=== PATIENT | male | born 1935 | race African-American/Black ===

== ENCOUNTER 2021-01-22 12:30 | Inpatient (IN) | payer OTHER ==
[~2021-01-22] VITALS: Ht 177.8 cm; Wt 62.7 kg
[2021-01-22 14:57] LABS: Albumin 2.8 g/dL (3.4-5.0); Calcium 8.1 mg/dL (8.5-10.1); Potassium 3.9 mmol/L (3.5-5.1)
[2021-01-22 15:00] LABS: BUN/Creatinine Ratio 18.5; Bilirubin, Total 0.8 mg/dL (0.2-1.0); Total Protein 6.3 g/dL (6.4-8.2)
[2021-01-22] MEDS ORDERED: NITROGLYCERIN 0.4 MG SL TAB SL PRN ×2 (16:45→19:15)
[2021-01-22] MEDS ORDERED: MORPHINE SULFATE INJECTION 2 MG/ML SYRG IV PRN ×3 (16:45→19:15)
[2021-01-22] MEDS ORDERED: ENOXAPARIN SOD 80 MG/0.8ML SYRINGE SC ONE (16:47)
[2021-01-22] MEDS ORDERED: NIFEdipine ER 30 MG TAB PO ONE (18:15)
[2021-01-22] MEDS ORDERED: hydrALAZINE HCL 20 MG/ML VL IV ONE (18:15)
[2021-01-22] MEDS ORDERED: hydrALAZINE HCL 20 MG/ML VL IV PRN (18:15)
[2021-01-22] MEDS ORDERED: ALBUTEROL SULF 2.5 MG/0.5ML(0.5%) NEB SOLN NEB ONE (19:15)
[2021-01-22] MEDS ORDERED: methylPREDNISolone SOD SUCC 125 MG/2 ML VL IV ONE (19:15)
[2021-01-22] MEDS ORDERED: IPRATROPIUM BROM 0.5 MG/2.5ML INH SOL NEB ONE (19:15)
[2021-01-22] MEDS ORDERED: ALUM & MAG HYDROX-SIMETH LIQ(MAALOX) 30 ML PO PRN (19:15)
[2021-01-22] MEDS ORDERED: HYDROcodone-ACET 5/325MG TAB PO PRN (19:15)
[2021-01-22] MEDS ORDERED: ACETAMINOPHEN 325 MG TAB PO PRN (19:15)
[2021-01-22] MEDS ORDERED: LOSARTAN POTASSIUM 50 MG TAB PO ONE (19:15)
[2021-01-22] MEDS ORDERED: ASPirin 81 mg TAB PO ONE (19:15)
[2021-01-22] MEDS ORDERED: ONDANSETRON HCL 4 MG/2 ML VIAL IV PRN (19:15)
[2021-01-22] MEDS ORDERED: FAMOTIDINE (10MG/ML) 2ML VL IV ONE (19:15)
[2021-01-22] MEDS ORDERED: ISOSORBIDE MONONITRATE ER 60 MG TAB PO ONE (19:15)
[2021-01-22] MEDS ORDERED: AZITHROMYCIN 500MG/ 250ML 250 ML IV ONE (19:15)
[2021-01-22] MEDS ORDERED: cefTRIAXone 1GM/50ML D5W 50 ML IV ONE (19:15)
[2021-01-22] MEDS ORDERED: DOCUSATE SOD 100 MG CAP PO PRN (19:15)
[2021-01-22] MEDS ORDERED: LORazepam 0.5 MG TAB PO PRN (19:15)
[2021-01-22 19:53] VITALS: BP 146/66
[2021-01-22] MEDS: FAMOTIDINE (10MG/ML) 2ML VL IV SCH (21:31)
[2021-01-22] MEDS: POTASSIUM CHL 20 Meq TABLET PO SCH (21:32)
[2021-01-22] MEDS: ATORVASTATIN 20 MG TAB PO SCH (21:33)
[2021-01-22 21:41] VITALS: BP 146/66
[2021-01-22] MEDS ORDERED: ALBUTEROL SULF 2.5 MG/0.5ML(0.5%) NEB SOLN NEB SCH (22:00)
[2021-01-22] MEDS ORDERED: IPRATROPIUM BROM 0.5 MG/2.5ML INH SOL NEB SCH (22:00)
[2021-01-22] MEDS ORDERED: LEVE500T32 PO (22:50)
[2021-01-22] MEDS ORDERED: PRE1T PO (22:50)
[2021-01-22] MEDS ORDERED: METH2.5T PO (22:50)
[2021-01-22] MEDS ORDERED: ATOR-47 PO (22:50)
[2021-01-22] MEDS ORDERED: TICA90TA PO (22:50)
[2021-01-22] MEDS ORDERED: LOSA25TA38 PO (22:50)
[2021-01-22] MEDS ORDERED: FOLI1TAB6 PO (22:50)
[2021-01-22] MEDS ORDERED: MID10T PO (22:50)
[2021-01-22] MEDS ORDERED: FINA5TAB4 PO (22:50)
[2021-01-22] MEDS ORDERED: LEVO0.5S6 OP (22:50)
[2021-01-22] MEDS ORDERED: ASPI-543 PO (22:50)
[2021-01-22] MEDS ORDERED: NITR1CAP23 PO (22:50)
[2021-01-23 01:00] LABS: Basophils # (auto) 0 10 ^3/uL (0-0.2); Basophils % (auto) 0.5 % (0.0-2.0); Eosinophils # (auto) 0.1 10 ^3/uL (0-0.8); Eosinophils % (auto) 2.7 % (0.0-7.0); Hematocrit 35.3 % (41.0-53.0); Lymphocytes # (auto) 0.7 10 ^3/uL (0.4-5.4); Lymphocytes % (auto) 17.8 % (10.0-50.0); Mean Corpuscular Hemoglobin 32.3 pg (28.0-32.0); Mean Corpuscular Hgb Conc. 34.2 g/dL (32.0-36.0); Mean Corpuscular Volume 94.6 fL (80.0-100.0); Monocytes # (auto) 0.3 10 ^3/uL (0-1.3); Monocytes % (auto) 6.2 % (0.0-12.0); Neutrophils # (auto) 3.1 10 ^3/uL (1.6-8.6); Neutrophils % (auto) 72.8 % (37.0-80.0); Nucleated Red Blood Cells % 0.1 %; Red Blood Cells 3.73 10^6/uL (4.5-5.90); Red Cell Distribution Width 16.1 % (11.8-14.3); White Blood Cell 4.2 10^3/uL (4.4-10.8)
[2021-01-23 04:56] VITALS: BP 90/59
[2021-01-23] MEDS ORDERED: FUROSEMIDE 20 MG/2 ML VIAL IV SCH (06:00)
[2021-01-23] MEDS ORDERED: methylPREDNISolone SOD SUCC 40 MG/ML VL IV SCH (06:00)
[2021-01-23] MEDS ORDERED: ENOXAPARIN SOD 100 MG/1 ML SYRINGE SC SCH (06:00)
[2021-01-23 07:10] LABS: INR 1.19 (0.9-1.15); Partial Thromboplastin Time 28.8 sec (23.6-33.0)
[2021-01-23 07:12] LABS: Basophils # (auto) 0 10 ^3/uL (0-0.2); Basophils % (auto) 0.4 % (0.0-2.0); Eosinophils # (auto) 0.1 10 ^3/uL (0-0.8); Eosinophils % (auto) 1.3 % (0.0-7.0); Hematocrit 31.5 % (41.0-53.0); Hemoglobin 10.8 g/dL (13.5-17.5); Lymphocytes # (auto) 0.4 10 ^3/uL (0.4-5.4); Lymphocytes % (auto) 10.1 % (10.0-50.0); Mean Corpuscular Hgb Conc. 34.4 g/dL (32.0-36.0); Monocytes # (auto) 0.2 10 ^3/uL (0-1.3); Monocytes % (auto) 5.9 % (0.0-12.0); Neutrophils # (auto) 3.5 10 ^3/uL (1.6-8.6); Neutrophils % (auto) 82.3 % (37.0-80.0); Nucleated Red Blood Cells % 0.1 %; Red Blood Cells 3.39 10^6/uL (4.5-5.90); Red Cell Distribution Width 15.9 % (11.8-14.3); White Blood Cell 4.2 10^3/uL (4.4-10.8)
[2021-01-23 07:16] LABS: Albumin 2.6 g/dL (3.4-5.0); Calcium 7.8 mg/dL (8.5-10.1); Magnesium 2.9 mg/dL (1.6-2.6); Potassium 4.1 mmol/L (3.5-5.1)
[2021-01-23 07:23] LABS: Bilirubin, Total 0.7 mg/dL (0.2-1.0); Phosphorus 2.2 mg/dL (2.5-4.90); Total Protein 5.6 g/dL (6.4-8.2); Uric Acid 7.4 mg/dL (3.5-7.2)
[2021-01-23 09:00] VITALS: BP 94/45
[2021-01-23] MEDS ORDERED: cefTRIAXone 1GM/50ML D5W 50 ML IV SCH (09:00)
[2021-01-23] MEDS: ISOSORBIDE MONONITRATE ER 60 MG TAB PO SCH (10:00)
[2021-01-23] MEDS ORDERED: LOSARTAN POTASSIUM 50 MG TAB PO SCH (10:00)
[2021-01-23] MEDS ORDERED: AZITHROMYCIN 500MG/ 250ML 250 ML IV SCH (10:00)
[2021-01-23] MEDS: POTASSIUM CHL 20 Meq TABLET PO SCH (10:11)
[2021-01-23] MEDS: ASPirin 81 mg TAB PO SCH (10:11)
[2021-01-23] MEDS: FAMOTIDINE (10MG/ML) 2ML VL IV SCH (10:11)
[2021-01-23 12:47] VITALS: BP 101/46
[2021-01-23] MEDS ORDERED: MORPHINE SULFATE INJECTION 2 MG/ML SYRG IV PRN (13:00)
[2021-01-23] MEDS ORDERED: FOLIC ACID 1 MG TAB PO ONE (13:00)
[2021-01-23 16:56] VITALS: BP 126/57
[2021-01-23] MEDS ORDERED: ENOXAPARIN SOD 80 MG/0.8ML SYRINGE SC SCH (18:00)
[2021-01-23] MEDS: TAMSULOSIN HYDROCHLORIDE 0.4 MG CAP PO SCH (18:08)
[2021-01-23 21:07] LABS: Urine Amorphous Crystal FEW /hpf (None Seen); Urine Bacteria FEW /hpf (None Seen); Urine Blood Negative /uL (Negative); Urine Budding Yeast MODERATE /hpf (None Seen); Urine Hyaline Cast FEW /lpf (0 - 2); Urine Mucus FEW (None Seen); Urine Specific Gravity 1.029 (1.001-1.035); Urine WBC 111 /hpf (0 - 3)
[2021-01-23] MEDS: TICAGRELOR 90 MG TAB PO SCH (21:26)
[2021-01-23 21:29] LABS: Amphetamine Screen, Urine NEGATIVE (NEGATIVE); Barbiturate Scree,Urine NEGATIVE (NEGATIVE); Benzodiazephine Screen, Urine NEGATIVE (NEGATIVE); Cannabinoid Screen, Urine NEGATIVE (NEGATIVE); Cocaine Screen, Urine NEGATIVE (NEGATIVE); Opiate Scree,Urine NEGATIVE (NEGATIVE); Phencyclidine Screen, Urine NEGATIVE (NEGATIVE)
[2021-01-23] MEDS: levETIRAcetam 500 MG TAB PO SCH (21:29)
[2021-01-23] MEDS: ATORVASTATIN 20 MG TAB PO SCH (21:29)
[2021-01-23 22:00] VITALS: BP 102/53
[2021-01-24 05:00] VITALS: BP 125/60
[2021-01-24 05:15] LABS: Basophils # (auto) 0 10 ^3/uL (0-0.2); Eosinophils # (auto) 0.1 10 ^3/uL (0-0.8); Eosinophils % (auto) 2.9 % (0.0-7.0); Hematocrit 29.7 % (41.0-53.0); Hemoglobin 10.3 g/dL (13.5-17.5); Lymphocytes # (auto) 0.6 10 ^3/uL (0.4-5.4); Lymphocytes % (auto) 16.2 % (10.0-50.0); Mean Corpuscular Hemoglobin 32.1 pg (28.0-32.0); Mean Corpuscular Hgb Conc. 34.7 g/dL (32.0-36.0); Mean Corpuscular Volume 92.3 fL (80.0-100.0); Monocytes # (auto) 0.4 10 ^3/uL (0-1.3); Monocytes % (auto) 10.3 % (0.0-12.0); Neutrophils # (auto) 2.6 10 ^3/uL (1.6-8.6); Neutrophils % (auto) 69.6 % (37.0-80.0); Nucleated Red Blood Cells % 0.1 %; Red Blood Cells 3.22 10^6/uL (4.5-5.90); Red Cell Distribution Width 16.3 % (11.8-14.3); White Blood Cell 3.7 10^3/uL (4.4-10.8)
[2021-01-24 05:54] LABS: BUN/Creatinine Ratio 25.9; Calcium 7.9 mg/dL (8.5-10.1)
[2021-01-24 09:00] VITALS: BP 135/67
[2021-01-24] MEDS: FOLIC ACID 1 MG TAB PO SCH (09:38)
[2021-01-24] MEDS: FAMOTIDINE 20 MG TAB PO SCH (09:38)
[2021-01-24] MEDS: predniSONE 5 MG TAB PO SCH (09:39)
[2021-01-24] MEDS: ISOSORBIDE MONONITRATE ER 60 MG TAB PO SCH (09:39)
[2021-01-24] MEDS: TICAGRELOR 90 MG TAB PO SCH ×2 (09:39→21:00)
[2021-01-24] MEDS: ASPirin 81 mg TAB PO SCH (09:39)
[2021-01-24] MEDS: levETIRAcetam 500 MG TAB PO SCH ×2 (09:40→21:00)
[2021-01-24 13:00] VITALS: BP 119/58
[2021-01-24 17:00] VITALS: BP 117/67
[2021-01-24] MEDS: TAMSULOSIN HYDROCHLORIDE 0.4 MG CAP PO SCH (18:00)
[2021-01-24] MEDS ORDERED: LORazepam 2MG/ML-1ML VIAL IV PRN (19:45)
[2021-01-24] MEDS: PRIMIDONE 50 MG TAB PO SCH (21:01)
[2021-01-24] MEDS: ATORVASTATIN 20 MG TAB PO SCH (21:01)
[2021-01-24 22:00] VITALS: BP 147/73
[2021-01-25] VITALS (7 sets, daily range): BP systolic 117–174; BP diastolic 67–86
[2021-01-25 05:42] LABS: Basophils # (auto) 0 10 ^3/uL (0-0.2); Basophils % (auto) 0.5 % (0.0-2.0); Eosinophils # (auto) 0.1 10 ^3/uL (0-0.8); Hematocrit 28.9 % (41.0-53.0); Hemoglobin 10.2 g/dL (13.5-17.5); Lymphocytes # (auto) 0.5 10 ^3/uL (0.4-5.4); Lymphocytes % (auto) 14.3 % (10.0-50.0); Mean Corpuscular Hemoglobin 32.5 pg (28.0-32.0); Mean Corpuscular Hgb Conc. 35.3 g/dL (32.0-36.0); Mean Corpuscular Volume 92.2 fL (80.0-100.0); Monocytes # (auto) 0.4 10 ^3/uL (0-1.3); Neutrophils # (auto) 2.7 10 ^3/uL (1.6-8.6); Neutrophils % (auto) 72.2 % (37.0-80.0); Nucleated Red Blood Cells % 0.1 %; Red Blood Cells 3.13 10^6/uL (4.5-5.90); Red Cell Distribution Width 16.4 % (11.8-14.3); White Blood Cell 3.8 10^3/uL (4.4-10.8)
[2021-01-25 06:03] LABS: Albumin 2.7 g/dL (3.4-5.0); BUN/Creatinine Ratio 22.8; Calcium 7.7 mg/dL (8.5-10.1); Potassium 3.8 mmol/L (3.5-5.1)
[2021-01-25 06:06] LABS: Total Protein 5.5 g/dL (6.4-8.2)
[2021-01-25] MEDS ORDERED: ADENOSINE 52 MG in GIVE UN-DILUTED 0 ML IV STA (08:14)
[2021-01-25] MEDS ORDERED: LOSARTAN POTASSIUM 25 MG TAB PO ONE (12:00)
[2021-01-25] MEDS: Ensure HIGH Protein Chocolate 8oz Bottle PO SCH ×2 (12:00→18:00)
[2021-01-25] MEDS: ISOSORBIDE MONONITRATE ER 60 MG TAB PO SCH (12:10)
[2021-01-25] MEDS: FOLIC ACID 1 MG TAB PO SCH (12:10)
[2021-01-25] MEDS: predniSONE 5 MG TAB PO SCH (12:10)
[2021-01-25] MEDS: TICAGRELOR 90 MG TAB PO SCH ×2 (12:10→22:00)
[2021-01-25] MEDS: ASPirin 81 mg TAB PO SCH (12:10)
[2021-01-25] MEDS: levETIRAcetam 500 MG TAB PO SCH ×2 (12:11→22:02)
[2021-01-25] MEDS: FAMOTIDINE 20 MG TAB PO SCH (12:11)
[2021-01-25] MEDS: TAMSULOSIN HYDROCHLORIDE 0.4 MG CAP PO SCH (17:51)
[2021-01-25] MEDS: ATORVASTATIN 20 MG TAB PO SCH (22:02)
[2021-01-25] MEDS: PRIMIDONE 50 MG TAB PO SCH (22:02)
[2021-01-26 05:00] VITALS: BP 118/69
[2021-01-26] MEDS: Ensure HIGH Protein Chocolate 8oz Bottle PO SCH ×3 (08:00→17:38)
[2021-01-26 09:00] VITALS: BP 153/81
[2021-01-26] MEDS: LOSARTAN POTASSIUM 25 MG TAB PO SCH (09:55)
[2021-01-26] MEDS: predniSONE 5 MG TAB PO SCH (09:55)
[2021-01-26] MEDS: FOLIC ACID 1 MG TAB PO SCH (09:55)
[2021-01-26] MEDS: ASPirin 81 mg TAB PO SCH (09:55)
[2021-01-26] MEDS: ISOSORBIDE MONONITRATE ER 60 MG TAB PO SCH (09:56)
[2021-01-26] MEDS: levETIRAcetam 500 MG TAB PO SCH ×2 (09:56→21:39)
[2021-01-26] MEDS: FAMOTIDINE 20 MG TAB PO SCH (09:56)
[2021-01-26] MEDS: TICAGRELOR 90 MG TAB PO SCH ×2 (10:00→21:39)
[2021-01-26 13:07] VITALS: BP 97/51
[2021-01-26 17:16] VITALS: BP 147/76
[2021-01-26] MEDS: TAMSULOSIN HYDROCHLORIDE 0.4 MG CAP PO SCH (17:38)
[2021-01-26] MEDS: ATORVASTATIN 20 MG TAB PO SCH (21:39)
[2021-01-26] MEDS: PRIMIDONE 50 MG TAB PO SCH (21:39)
[2021-01-26 22:02] VITALS: BP 112/43
[2021-01-27 04:36] VITALS: BP 171/87
[2021-01-27 05:35] VITALS: BP 140/72
[2021-01-27 09:00] VITALS: BP 132/82
[2021-01-27] MEDS: FAMOTIDINE 20 MG TAB PO SCH (09:15)
[2021-01-27] MEDS: LOSARTAN POTASSIUM 25 MG TAB PO SCH (09:16)
[2021-01-27] MEDS: predniSONE 5 MG TAB PO SCH (09:16)
[2021-01-27] MEDS: FOLIC ACID 1 MG TAB PO SCH (09:16)
[2021-01-27] MEDS: ISOSORBIDE MONONITRATE ER 60 MG TAB PO SCH (09:17)
[2021-01-27] MEDS: TICAGRELOR 90 MG TAB PO SCH (09:17)
[2021-01-27] MEDS: ASPirin 81 mg TAB PO SCH (09:17)
[2021-01-27] MEDS: levETIRAcetam 500 MG TAB PO SCH (09:18)
[2021-01-27] MEDS: Ensure HIGH Protein Chocolate 8oz Bottle PO SCH ×2 (09:18→12:31)
[2021-01-27 12:46] VITALS: BP 90/45
[2021-01-27 14:58] VITALS: BP 90/45
== END 2021-01-27 16:13 | disposition home health service (06) | DRG 73 ==
LOC: EDBD 12:30 → ER 12:30 → WEST WING 19:07 → TELE-WESTW 23:52
PROVIDERS: ADMIT Hospitalist; ATTEND Internal Medicine
DX: G90.8 Other disorders of autonomic nervous system (principal); I21.A1 Myocardial infarction type 2; E44.0 Moderate protein-calorie malnutrition; G40.209 Localization-related (focal) (partial) symptomatic epilepsy and epileptic syndromes with complex partial seizures, not intractable, without status epilepticus; J44.1 Chronic obstructive pulmonary disease with (acute) exacerbation; N39.0 Urinary tract infection, site not specified; I16.1 Hypertensive emergency; R29.6 Repeated falls; I10 Essential (primary) hypertension; E78.5 Hyperlipidemia, unspecified; R00.1 Bradycardia, unspecified; R55 Syncope and collapse; G20 Parkinson's disease; I25.10 Atherosclerotic heart disease of native coronary artery without angina pectoris; M06.9 Rheumatoid arthritis, unspecified; N40.0 Benign prostatic hyperplasia without lower urinary tract symptoms; Z20.822 Contact with and (suspected) exposure to COVID-19; G47.10 Hypersomnia, unspecified; D64.9 Anemia, unspecified; Z68.20 Body mass index [BMI] 20.0-20.9, adult; Z87.891 Personal history of nicotine dependence; Z79.899 Other long term (current) drug therapy; Z91.19 Patient's noncompliance with other medical treatment and regimen; Z91.81 History of falling; Z95.5 Presence of coronary angioplasty implant and graft
CPT/HCPCS: 36415; 70450; 70551; 71045; 71250; 73502; 78452; 80048; 80053; 80307; 81001; 82306; 83036; 83735; 83880; 84100; 84443; 84484; 84550; 85025; 85379; 85610; 85730; 87040; 87086; 87426; 93005; 93017; 93306; 93886; 95819; 96372; 96374; 97110; 97116; 97530; G0378; J0153; J0696; J3490

== ENCOUNTER 2021-05-18 19:10 | Inpatient (IN) | payer OTHER ==
[~2021-05-18] VITALS: Ht 177.8 cm; Wt 61.4 kg
[~2021-05-18 19:10] MED LIST: ASPI-543 PO; ATOR-47 PO; FINA5TAB4 PO; FOLI1TAB6 PO; LEVE500T32 PO; LEVO0.5S6 OP; LOSA25TA38 PO; METH2.5T PO; MID10T PO; NITR1CAP23 PO; PRE1T PO; TICA90TA PO
[2021-05-18] MEDS ORDERED: LABETALOL HCL 5 MG/ML 4ML SYRINGE IV ONE (20:00)
[2021-05-18] MEDS ORDERED: levETIRAcetam 500 MG/5ML INJ IV ONE (20:26)
[2021-05-18 22:21] LABS: Urine Bacteria NONE SEEN /hpf (None Seen); Urine Blood Negative /uL (Negative); Urine Specific Gravity 1.015 (1.001-1.035); Urine WBC <1 /hpf (0 - 3)
[2021-05-18 22:26] LABS: Albumin 2.7 g/dL (3.4-5.0); Calcium 7.4 mg/dL (8.5-10.1); Magnesium 2.1 mg/dL (1.6-2.6)
[2021-05-18 22:37] LABS: BUN/Creatinine Ratio 28.3; Bilirubin, Total 0.7 mg/dL (0.2-1.0); Total Protein 5.6 g/dL (6.4-8.2)
[2021-05-18] MEDS ORDERED: ASPirin 325 MG TAB PO ONE (23:00)
[2021-05-18 23:06] LABS: Basophils # (auto) 0 10 ^3/uL (0-0.2); Basophils % (auto) 0.5 % (0.0-2.0); Eosinophils # (auto) 0 10 ^3/uL (0-0.8); Hemoglobin 10.2 g/dL (13.5-17.5); Lymphocytes # (auto) 0.8 10 ^3/uL (0.4-5.4); Mean Corpuscular Hgb Conc. 35.1 g/dL (32.0-36.0); Monocytes # (auto) 0.2 10 ^3/uL (0-1.3)
[2021-05-18 23:08] LABS: Lymphocytes % (auto) 36.7 % (10.0-50.0); Mean Corpuscular Hemoglobin 34.7 pg (28.0-32.0); Mean Corpuscular Volume 98.7 fL (80.0-100.0); Monocytes % (auto) 7.3 % (0.0-12.0); Neutrophils # (auto) 1.2 10 ^3/uL (1.6-8.6); Neutrophils % (auto) 53.5 % (37.0-80.0); Nucleated Red Blood Cells % 0.2 %; Red Blood Cells 2.94 10^6/uL (4.5-5.90); Red Cell Distribution Width 19.8 % (11.8-14.3); White Blood Cell 2.2 10^3/uL (4.4-10.8)
[2021-05-19] MEDS ORDERED: ACETAMINOPHEN 325 MG TAB PO PRN (00:15)
[2021-05-19] MEDS ORDERED: MORPHINE SULFATE INJECTION 2 MG/ML SYRG IV PRN (00:15)
[2021-05-19] MEDS ORDERED: ONDANSETRON HCL 4 MG/2 ML VIAL IV PRN (00:15)
[2021-05-19] MEDS ORDERED: NITROGLYCERIN 0.4 MG SL TAB SL PRN (00:15)
[2021-05-19] MEDS ORDERED: hydrALAZINE HCL 20 MG/ML VL IV PRN (04:15)
[2021-05-19 09:00] VITALS: BP 108/60
[2021-05-19 09:15] VITALS: BP 108/60
[2021-05-19] MEDS ORDERED: ASPirin 81 mg TAB PO SCH (10:00)
[2021-05-19] MEDS ORDERED: CYAN1TAB14 PO (10:29)
[2021-05-19] MEDS ORDERED: DIVA500T2 PO (10:29)
[2021-05-19] MEDS ORDERED: ASPI-717 PO (10:29)
[2021-05-19] MEDS: levETIRAcetam 500 MG TAB PO SCH ×2 (11:03→21:24)
[2021-05-19] MEDS: TICAGRELOR 90 MG TAB PO SCH ×2 (11:04→21:25)
[2021-05-19] MEDS: PANTOPRAZOLE 40 MG TAB PO SCH (11:04)
[2021-05-19] MEDS: ENOXAPARIN SOD 40 MG/0.4 ML SYRINGE SC SCH (11:04)
[2021-05-19] MEDS: LOSARTAN POTASSIUM 25 MG TAB PO SCH (11:06)
[2021-05-19 13:30] VITALS: BP 147/69
[2021-05-19 14:45] LABS: BUN/Creatinine Ratio 27.4; Calcium 8.1 mg/dL (8.5-10.1)
[2021-05-19 17:00] VITALS: BP 149/79
[2021-05-19 18:50] VITALS: BP 108/60
[2021-05-19 22:00] VITALS: BP 133/74
[2021-05-19] MEDS ORDERED: ATORVASTATIN 20 MG TAB PO SCH (22:00)
[2021-05-20 05:00] VITALS: BP 163/59
[2021-05-20 06:23] LABS: Basophils # (auto) 0 10 ^3/uL (0-0.2); Basophils % (auto) 0.4 % (0.0-2.0); Eosinophils # (auto) 0.1 10 ^3/uL (0-0.8); Eosinophils % (auto) 2.4 % (0.0-7.0); Hematocrit 31.7 % (41.0-53.0); Lymphocytes # (auto) 0.9 10 ^3/uL (0.4-5.4); Lymphocytes % (auto) 20.3 % (10.0-50.0); Mean Corpuscular Hemoglobin 34.4 pg (28.0-32.0); Mean Corpuscular Hgb Conc. 34.8 g/dL (32.0-36.0); Mean Corpuscular Volume 98.9 fL (80.0-100.0); Monocytes # (auto) 0.4 10 ^3/uL (0-1.3); Monocytes % (auto) 8.1 % (0.0-12.0); Neutrophils # (auto) 3.1 10 ^3/uL (1.6-8.6); Neutrophils % (auto) 68.8 % (37.0-80.0); Nucleated Red Blood Cells % 0.2 %; Red Cell Distribution Width 19.5 % (11.8-14.3); White Blood Cell 4.5 10^3/uL (4.4-10.8)
[2021-05-20 06:32] LABS: Chloride 109 mmol/L (98-107); Potassium 3.9 mmol/L (3.5-5.1); Sodium 142 mmol/L (136-145)
[2021-05-20 06:37] LABS: Alanine Aminotransferase 38 U/L (16-61); Albumin 2.4 g/dL (3.4-5.0); Anion Gap 7 (5-15); Aspartate Aminotransferase 32 U/L (15-37); BUN/Creatinine Ratio 27.4; Blood Urea Nitrogen 20 mg/dL (7-18); Calcium 7.7 mg/dL (8.5-10.1); Carbon Dioxide 26 mmol/L (21-32); GFR African American 132 mL/min; GFR Non-African American 109 mL/min; Glucose 81 mg/dL (74-106)
[2021-05-20 06:42] LABS: Alkaline Phosphatase 78 U/L (45-117); Total Protein 5.3 g/dL (6.4-8.2)
[2021-05-20 08:47] VITALS: BP 152/75
[2021-05-20] MEDS: ENOXAPARIN SOD 40 MG/0.4 ML SYRINGE SC SCH (09:22)
[2021-05-20] MEDS: PANTOPRAZOLE 40 MG TAB PO SCH (09:22)
[2021-05-20] MEDS: TICAGRELOR 90 MG TAB PO SCH (09:23)
[2021-05-20] MEDS: levETIRAcetam 500 MG TAB PO SCH (09:25)
[2021-05-20] MEDS: LOSARTAN POTASSIUM 25 MG TAB PO SCH (09:25)
[2021-05-20] MEDS ORDERED: ASPirin 81 mg TAB PO SCH (10:00)
[2021-05-20 13:01] VITALS: BP 139/62
[2021-05-20 16:58] VITALS: BP 120/57
[2021-05-20] MEDS ORDERED: TAMSULOSIN HYDROCHLORIDE 0.4 MG CAP PO SCH (18:00)
== END 2021-05-20 18:25 | disposition short-term general hospital (02) | DRG 100 ==
LOC: EDBD 19:10 → ER 19:11 → TELE 05-19 00:07 → TELE-WESTW 05-19 09:13
PROVIDERS: ADMIT Nurse Practitioner; ATTEND Internal Medicine
DX: G40.909 Epilepsy, unspecified, not intractable, without status epilepticus (principal); I21.A1 Myocardial infarction type 2; E44.0 Moderate protein-calorie malnutrition; Z68.1 Body mass index [BMI] 19.9 or less, adult; I16.0 Hypertensive urgency; S20.229A Contusion of unspecified back wall of thorax, initial encounter; I10 Essential (primary) hypertension; E78.5 Hyperlipidemia, unspecified; Z20.822 Contact with and (suspected) exposure to COVID-19; W18.39XA Other fall on same level, initial encounter; N40.0 Benign prostatic hyperplasia without lower urinary tract symptoms; I25.10 Atherosclerotic heart disease of native coronary artery without angina pectoris; Y93.89 Activity, other specified; Y92.89 Other specified places as the place of occurrence of the external cause; Y99.8 Other external cause status
CPT/HCPCS: 36415; 70450; 70551; 72070; 80048; 80053; 81001; 82542; 83735; 84484; 85025; 93005; 96365; 96367; 96375; 97163; 99291; G0378; J3490; J7060